=== PATIENT | female | born 2000 | race Caucasian/White ===

== ENCOUNTER 2021-10-26 12:02 | Emergency (ER) | payer SELFPAY ==
[2021-10-26 12:11] VITALS: BP 121/62; PULSE 82; RESP 18; TEMP 98.2; BMI 20.9
[2021-10-26 14:02] LABS: PH,URINE 5.5 (5.0-8.0); URINE APPEARANCE CLEAR; URINE BILIRUBIN NEGATIVE (NEGATIVE); URINE COLOR YELLOW; URINE GLUCOSE (UA) NEGATIVE (NEGATIVE); URINE KETONE NEGATIVE (NEGATIVE); URINE LEUK ESTERASE NEGATIVE (NEGATIVE); URINE NITRITE NEGATIVE (NEGATIVE); URINE PROTEIN NEGATIVE (NEGATIVE); URINE UROBILINOGEN 0.2 mg/dL (0.2-1.0)
[2021-10-26 14:10] LABS: HCG,QUALITATIVE URINE NEGATIVE
[2021-10-26] MEDS ORDERED: ACETAMINOPHEN 500 MG TABLET (FP) PO ONE (14:55)
[2021-10-26] MEDS ORDERED: ACETAMINOPHEN 500 MG TABLET (FP) ONE (15:24)
[2021-10-26] MEDS ORDERED: FLUCONAZOLE 50 MG TABLET PO ONE (16:05)
[2021-10-26] MEDS ORDERED: FLUCONAZOLE 150 MG TABLET PO ONE ×2 (16:29→16:34)
[2021-10-26] MEDS ORDERED: KETOROLAC TROMETHAMINE 30 MG/1 ML VIAL IM ONE (16:33)
[2021-10-26] MEDS ORDERED: KETOROLAC TROMETHAMINE 30 MG/1 ML VIAL ONE (16:34)
== END 2021-10-26 16:41 | disposition home or self-care (01) ==
LOC: JER 12:02
PROC: 3E0233Z Introduction of Anti-inflammatory into Muscle, Percutaneous Approach (ICD-10-PCS; principal; 2021-10-26)
DX: B37.49 Other urogenital candidiasis (principal)
CPT/HCPCS: 36415; 76830-TC; 81003; 84703; 87070; 87086; 87205; 87491; 87591; 99285-25